=== PATIENT | male | born 1990 | race Two or more races ===

== ENCOUNTER 2021-03-22 22:46 | Emergency (ER) | payer BC, OTHER ==
[~2021-03-22] VITALS: Ht 185.4 cm; Wt 112.3 kg
[2021-03-22 22:50] VITALS: BP 141/71
[2021-03-23] MEDS ORDERED: TETanus/Pertussis (Acell)/Diphther VAC/PF (Tdap-Adult) 0.5ml syringe IMVAC ONE (00:10)
[2021-03-23] MEDS ORDERED: LIDOcaine 1% 30ml preserv. free vial IJ ONE (00:10)
== END 2021-03-23 02:14 | disposition home or self-care (01) ==
LOC: ER 22:46
DX: S61.325A Laceration with foreign body of left ring finger with damage to nail, initial encounter (principal); Z88.8 Allergy status to other drugs, medicaments and biological substances; Z72.89 Other problems related to lifestyle; W26.0XXA Contact with knife, initial encounter; Y93.89 Activity, other specified; Y92.89 Other specified places as the place of occurrence of the external cause; Y99.8 Other external cause status; G43.909 Migraine, unspecified, not intractable, without status migrainosus
CPT/HCPCS: 11730; 12001; 90471; 90715; 99283; 99284